=== PATIENT | male | born 1970 | race Caucasian/White ===

== ENCOUNTER 2019-05-09 16:53 | Emergency (ER) | payer OTHER ==
[2019-05-09 17:09] VITALS: BP 126/79
--- NOTE | 2019-05-09 17:21 | UC ---
Respiratory Complaint HPI - HPI Summary HPI Summary: Pt presents with c/o nasal and chest congestion, fatigue body aches, and worsening cough that keeps pt up at night X 7 days. - History of Current Complaint Chief Complaint: UCGeneralIllness Stated Complaint: COUGH Time Seen by Provider: 05/09/19 17:09 Hx Obtained From: Patient Onset/Duration: Gradual Onset, Lasting Days, Still Present, Worse Since - onset Timing: Constant Severity Initially: Mild Severity Currently: Moderate Pain Intensity: 0 Character: Cough: Productive - yellow Aggravating Factors: Exertion, Deep Breaths, Recumbent Position Alleviating Factors: Nothing Associated Signs And Symptoms: Positive: Chills, Wheezing - with exertion, URI, Nasal Congestion - Risk Factors Pulmonary Embolism Risk Factors: Negative Cardiac Risk Factors: Negative Pseudomonas Risk Factors: Negative Tuberculosis Risk Factors: Negative - Allergies/Home Medications Allergies/Adverse Reactions: Allergies Allergy/AdvReac Type Severity Reaction Status Date / Time No Known Allergies Allergy Verified 05/09/19 17:02 Home Medications: Home Medications Guaifenesin/Dextromethorphan [Cough Dm Syrup] 1 dose PO ONCE 05/09/19 [History Confirmed 05/09/19] Metoprolol Tartrate TAB* [Lopressor TAB*] 1 tab PO DAILY 05/09/19 [History Confirmed 05/09/19] Minocycline (NF) 1 tab PO DAILY 05/09/19 [History Confirmed 05/09/19] Omeprazole 1 tab PO DAILY 05/09/19 [History Confirmed 05/09/19] guaiFENesin [Mucinex] 1 tab PO ONCE 05/09/19 [History Confirmed 05/09/19] PMH/Surg Hx/FS Hx/Imm Hx Previously Healthy: Yes Cardiovascular History: Cardiac Disease, Hypertension - Surgical History Surgical History: None - Family History Known Family History: Positive: Cardiac Disease - Social History Lives: With Family Alcohol Use: None Substance Use Type: None Smoking Status (MU): Former Smoker Have You Smoked in the Last Year: No When Did the Patient Quit Smoking/Using Tobacco: 2017 Review of Systems All Other Systems Reviewed And Are Negative: Yes Constitutional: Positive: Chills, Fatigue Skin: Positive: Negative Eyes: Positive: Negative ENT: Positive: Sinus Congestion Respiratory: Positive: Cough, Other - chest congestion Cardiovascular: Positive: Negative Gastrointestinal: Positive: Negative Genitourinary: Positive: Negative Motor: Positive: Negative Neurovascular: Positive: Negative Musculoskeletal: Positive: Myalgia Neurological: Positive: Headache Psychological: Positive: Negative Is Patient Immunocompromised?: No Physical Exam Triage Information Reviewed: Yes Appearance: Ill-Appearing Vital Signs: Initial Vital Signs Temp 97.7 F 05/09/19 17:05 Pulse 72 05/09/19 17:05 Resp 14 05/09/19 17:05 BP 126/79 05/09/19 17:05 Pulse Ox 100 05/09/19 17:05 Vital Signs Reviewed: Yes Eye Exam: Normal ENT: Positive: Nasal congestion Dental Exam: Normal Neck exam: Normal Respiratory: Positive: Rhonchi, Other: - upper chest congestion Cardiovascular Exam: Normal Musculoskeletal Exam: Normal Neurological Exam: Normal Psychological Exam: Normal Skin Exam: Normal Respiratory Course/Dx - Course Course Of Treatment: I discussed viral vs. bacterial and pt stated "I think I have a respiratory infection". - Differential Dx/Diagnosis Differential Diagnosis/HQI/PQRI: Bronchitis, Influenza Discharge ED - Discharge Plan Condition: Stable Disposition: HOME Prescriptions: Azithromycin TAB* [Zithromax TAB (Z-JAMIE) 250 mg #6 tabs] 2 tab PO .TODAY, THEN 1 DAILY #1 jamie Benzonatate CAP* [Tessalon 100 MG CAP*] 100 mg PO Q8H PRN #30 cap PRN Reason: Cough Patient Education Materials: Acute Bronchitis (ED) Referrals: Bernadine Nelson MD [Primary Care Provider] - If Needed Additional Instructions: Please follow up with your PCP as needed. If your symptoms worsen, please seek care at the closest emergency room as soon as possible. - Billing Disposition and Condition Condition: STABLE Disposition: Home
== END 2019-05-09 17:37 | disposition home or self-care (01) ==
LOC: UCCORT 16:53
DX: J06.9 Acute upper respiratory infection, unspecified (principal); R09.89 Other specified symptoms and signs involving the circulatory and respiratory systems; R09.81 Nasal congestion; R53.83 Other fatigue; M79.10 Myalgia, unspecified site; R51 Headache; R06.2 Wheezing; I10 Essential (primary) hypertension; Z87.891 Personal history of nicotine dependence
CPT/HCPCS: 99212; G0463